=== PATIENT | female | born 1965 | race Caucasian/White ===

== ENCOUNTER 2025-09-25 12:46 | Outpatient (CLI) | payer BC, SELFPAY ==
--- NOTE | 2025-09-25 13:00 | CRLHL7_ITS ---
For Patients: As a result of the Century Cures Act, medical imaging exams and procedure reports are released immediately into your electronic medical record. You may view this report before your referring provider. If you have questions, please contact your health care provider. INDICATION: BILATERAL SCREENING MAMMOGRAM, ASYMPTOMATIC 60 Y/O FEMALE COMPARISON: 01/05/2024 TECHNIQUE: Digital mammogram in CC and MLO projections including computer-aided detection (CAD) and tomosynthesis. BREAST COMPOSITION: The breasts are heterogeneously dense, which may obscure small masses. FINDINGS: No suspicious findings. ASSESSMENT: BI-RADS 2 Benign RECOMMENDATION: Annual screening mammogram. A lay language report of this examination will be provided to the patient. Dictated by: Israel Huang MD @ 09/26/2025 08:44:47 (Electronically Signed)
--- NOTE | 2025-09-25 13:30 | CRLHL7_ITS ---
For Patients: As a result of the Century Cures Act, medical imaging exams and procedure reports are released immediately into your electronic medical record. You may view this report before your referring provider. If you have questions, please contact your health care provider. DXA BONE MINERAL DENSITY STUDY Reason for exam: Osteopenia. Current height (in): 67. Weight (lb): 140. Menopause age: 53. Ethnicity: White. 1. Have you had a previous hip or vertebral fracture? No. 2. Have you had any fractures during your adult life which did not result from significant trauma (e.g., auto accident)? No. 3. Did either of your parents have a hip fracture? No. 4. Do you smoke? No. 5. Have you ever taken Glucocorticoids? No. 6. Do you have rheumatoid arthritis? No. 7. Do you have secondary osteoporosis? No. 8. Do you drink 3 or more alcoholic drinks per day? No. 9. Are you being treated for osteoporosis? No. 10. Have you ever taken any of the following medications: Actonel, Evista, Fosamax, Miacalcin, Reclast, Boniva, Forteo, HRT (i.e. estrogen/hormone therapy), Protelos, Prolia, Vitamin D, Calcium, other ??? please specify. ANSWER: No. 11. Do you have any of the following medical conditions: Anorexia or bulimia, asthma or emphysema, end stage renal disease, hyperparathyroidism, any seizure disorders, cancer, inflammatory bowel diseases, hysterectomy, other ??? please specify. ANSWER: No. 12. What was your maximum height (inches)? Not provided. 13. Do you perform weight bearing exercise regularly? Not provided. 14. Do you regularly consume dairy products? Not provided. 15. Do you drink caffeinated beverages? Not provided. 16. At what age did your period start? Not provided. 17. Are you premenopausal? No. 18. How many full-term pregnancies have you had? Not provided. 19. Have you ever missed your period for more than 6 months in a row (not including or menopause)? Not provided. TECHNIQUE: Bone mineral density study was performed using the [employer]. FINDINGS: The results of the study expressed as bone mineral density (BMD) are as follows: Lumbar spine L1 to L4: BMD: 0.886 g/cm2. T-score: -1.5. Z-score: 0.1. Neck Left: BMD: 0.616 g/cm2. T-score: -2.1. Z-score: -0.7. Right: BMD: 0.560 g/cm2. T-score: -2.6. Z-score: -1.2. Total Left: BMD: 0.672 g/cm2. T-score: -2.2. Z-score: -1.2. Right: BMD: 0.704 g/cm2. T-score: -1.9. Z-score: -0.9. IMPRESSION: Osteoporosis. *Comparison exams done prior to 04/2020 were performed on different unit, [facility]. Israel Huang M.D. Diagnostic Radiologist [email or web address] baker/Dictated by: sIrael Huang MD @ 09/26/2025 11:57:00 AM (Electronically Signed)
== END 2025-09-25 12:47 | disposition home or self-care (01) ==
LOC: MAMMO 12:48
PROVIDERS: PCP Internal Medicine; Visit Provider Internal Medicine
DX: Z12.31 Encounter for screening mammogram for malignant neoplasm of breast (principal); R92.333 Mammographic heterogeneous density, bilateral breasts; M85.80 Other specified disorders of bone density and structure, unspecified site; M81.0 Age-related osteoporosis without current pathological fracture
CPT/HCPCS: 77063; 77067; 77080

== ENCOUNTER 2025-10-13 09:05 | Outpatient (CLI) | payer BC, SELFPAY | END 2025-10-13 09:06 | disposition home or self-care (01) | LOC: NFLDREF 10-16 07:31 | PROVIDERS: PCP Internal Medicine; Referring Provider Internal Medicine; Visit Provider Internal Medicine | DX: M85.80 Other specified disorders of bone density and structure, unspecified site (principal) | CPT/HCPCS: 80053; 80061; 82306; 84443 ==